=== PATIENT | male | born 1990 | race Caucasian/White ===

== ENCOUNTER 2024-05-28 10:12 | Inpatient (IN) | payer MEDICAID, OTHER, SELFPAY ==
[2024-05-28 10:15] VITALS: BP 122/80; PULSE 97; RESP 20; TEMP 36.7; O2SAT 100; BMI 25.1
--- NOTE | 2024-05-28 10:29 | PC.NURSE ---
couple patient lives with, Anitha can be reached at [phone] if needed. patient had request no information be given to his mother when he was in triage.
[2024-05-28 10:42] LABS: MANUAL DIFF FLAG NO
[2024-05-28 10:44] LABS: Basophils Percent Auto 0.2 % (0-2); Eosinophils Percent Auto 0.2 % (0-4); Hematocrit 47.5 % (42.0-52.0); Hemoglobin 16.3 g/dl (14.0-18.0); Imm Gran Abs Auto 0.06 X10*3/uL (0.00-0.03); Imm Gran Pct Auto 0.5 % (0.0-0.4); Lymphocytes Absolute Auto 1.4 X10*3/uL (1.2-4.9); Lymphocytes Percent Auto 11.3 % (20-40); Mean Corpuscular HGB Conc 34.3 g/dl (31.0-36.0); Mean Corpuscular Hemoglobin 29.7 pg (27.0-33.0); Mean Corpuscular Volume 86.5 fL (80.0-98.0); Mean Platelet Volume 8.6 fL (9.4-12.4); Monocytes Absolute Auto 0.4 X10*3/uL (0.1-1.2); Monocytes Percent Auto 3.1 % (2-11); Neutrophils Absolute Auto 10.3 x10*3/uL (2.0-8.3); Neutrophils Percent Auto 84.7 % (45-73); Platelet Count 339 X10*3/uL (160-400); Red Blood Count 5.49 X10*6/uL (4.60-5.80); Red Cell Distribution Width 11.9 % (11.0-16.0); White Blood Count 12.1 X10*3/uL (4.8-10.8)
[2024-05-28 10:59] LABS: Acetaminophen LAB < 3 mcg/mL (<30); Alanine Aminotransferase 14 U/L (0-40); Albumin Level 4.7 g/dL (3.5-5.0); Alkaline Phosphatase 82 U/L (39-117); Anion Gap 13 (12-20); Aspartate Amino Transferase 22 U/L (5-37); Blood Urea Nitrogen 13 mg/dL (9-16); Calcium 9.9 mg/dL (8.4-10.2); Carbon Dioxide 29 mmol/L (22-29); Chloride 101 mmol/L (96-108); Creatinine Clr Calc Pharmacy 84.7; Estimated Glomerular Filt Rate > 60; Ethanol < 10 mg/dL; Glucose Random 98 mg/dL (60-115); Potassium 3.6 mmol/L (3.3-5.1); Salicylate < 5.0 mg/dL (15-30); Sodium 139 mmol/L (135-145); Total Protein 8.5 g/dL (6.5-8.0)
[2024-05-28] MEDS: hydrOXYzine HCL 50 MG TABLET PO (12:35)
[2024-05-28 12:50] LABS: Amphetamine Screen Urine Not Detected (Not Detect); Barbiturates, Urine Not Detected (Not Detect); Benzodiazepines Screen Urine Not Detected (Not Detect); Buprenorphine Scr Not Detected (Not Detect); Cannabinoid Screen Urine POSITIVE (Not Detect); Cocaine Screen Urine POSITIVE (Not Detect); Fentanyl, urine POSITIVE (Not Detect); Methadone Screen, Urine Not Detected (Not Detect); Opiate Screen Urine Not Detected (Not Detect); Oxycodone Screen Urine Positive (Not Detect); Phencyclidine Screen Urine Not Detected (Not Detect)
--- NOTE | 2024-05-28 14:27 | ECG_ITS ---
Test Reason : ADMISSION Blood Pressure : / mmHG Vent. Rate : 072 BPM Atrial Rate : 072 BPM P-R Int : 128 ms QRS Dur : 084 ms QT Int : 352 ms P-R-T Axes : 043 063 -05 degrees QTc Int : 385 ms Normal sinus rhythm Abnormal QRS-T angle, consider primary T wave abnormality Abnormal ECG No previous ECGs available Referred By: Desirae Irizarry Electronically Signed By:Jayce Thao
--- NOTE | 2024-05-28 15:32 | PC.NURSE ---
Assumed care of patient at 1445, patient appears to be in no apparent distress, sleeping, respirations even and unlabored. Continue plan of care for inpatient bedsearch
[2024-05-28 16:44] LABS: Appearance Urine Clear; Color Urine Dark Yellow; Glucose Urine UA Negative (Negative); Leukocyte Esterase Urine Small (1+) (Negative); Nitrite Urine Negative (Negative); Specific Gravity - Urine >= 1.030 (1.005-1.025); UMIC TRIGGER UA YES; Urine Blood Negative (Negative); Urine Ketones >=160 mg/dL (Negative); Urine Protein 30 (1+) mg/dL (Neg-Trace)
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
[2024-05-28 16:50] LABS: Bacteria Urine 1+ (None Seen); Hyaline Casts Urine 0-2 /LPF (0-2); RBC Urine 0-2 /HPF (0-2)
[2024-05-28 19:30] VITALS: BP 137/91; PULSE 85; RESP 16; TEMP 37.7; O2SAT 100
[2024-05-28 22:00] VITALS: RESP 16
--- NOTE | 2024-05-29 10:59 | PC.NURSE ---
Assumed care of patient at 1045, patient appears to be in no apparent distress at this time. Appears to be sleeping, respiraitons even and unlabored. Continue plan of care for inpatient bedsearch
--- NOTE | 2024-05-29 11:27 | PHA.MEDREC ---
Addendum entered by Kylah Banegas RPh 05/29/24 11:32: Reviewed by [facility] Original Note: Pharmacy Consult ? Medication Reconciliation Pharmacy has reviewed the medication reconciliation done by nursing.
[2024-05-29 13:43] VITALS: BP 124/68; PULSE 87; RESP 16; TEMP 36.9; O2SAT 99
[2024-05-29 14:52] VITALS: BP 147/97; PULSE 89; RESP 20; TEMP 36.5; O2SAT 99
[2024-05-29 14:53] VITALS: BMI 23.3
[2024-05-29] MEDS: hydrOXYzine HCL 25 MG TABLET PO (14:59)
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
[2024-05-29] MEDS: Nicotine Polacrilex 2 MG GUM 4 MG BUCCAL (19:15)
[2024-05-29 20:00] VITALS: BP 127/77; PULSE 83; RESP 14; TEMP 36.4; O2SAT 100
[2024-05-29] MEDS: OLANZapine 5 MG TABLET PO (20:37)
[2024-05-29] MEDS: traZODone HCL 50 MG TABLET PO (20:37)
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
[2024-05-30 08:04] VITALS: BP 123/67; PULSE 72; RESP 18; TEMP 36.3; O2SAT 98
[2024-05-30] MEDS: Nicotine 21 MG PATCH.TD24 TRANSDERMA (08:45)
[2024-05-30] MEDS: Nicotine Polacrilex 2 MG GUM 4 MG BUCCAL ×2 (08:45→15:56)
[2024-05-30] MEDS: OLANZapine 5 MG TABLET PO ×3 (08:45→21:12)
[2024-05-30] MEDS: hydrOXYzine HCL 25 MG TABLET PO ×3 (08:45→23:43)
[2024-05-30 11:01] LABS: Estimated Average Glucose 97 mg/dL; Hemoglobin A1C 137.0283 umol/L; Total Hemoglobin (HGBA1C) 4333.3462 umol/L
[2024-05-30 11:11] LABS: Cholesterol 185 mg/dL (<200); HDL Cholesterol 39 mg/dL (>40); LDL Cholesterol Calculated 117 mg/dL (<100); Magnesium 2.3 mg/dL (1.6-2.6); Triglycerides 149 mg/dL (<150)
[2024-05-30 11:39] LABS: Vitamin B12 353 pg/mL (200-900)
[2024-05-30 11:45] LABS: Free T4 (Free Thyroxine) 1.18 ng/dL (0.71-1.85)
--- NOTE | 2024-05-30 12:15 | MHC.RECOVRN ---
Met with pt in 50- after consult placed to Addiction Medicine for polysubstance use.? Chart review completed. Pt had presented to the ED with increasing paranoia . Pt was admitted to the floor voluntary for? IP LOC for safety, stabilization and treatment.? Upon assessment pt is walking around the unit awake and alert.? He agreed to meet with me in the common area. Pt presented as paranoid and with possible delusions but was still able to meet with me to discuss his substance use history.? Pt reports he has been using substances for a while and at it?s highest use he was using ?an 8 ball of cocaine, 5 bundles of heroin and multiple pressed fentanyl pills? a day.? He uses this via nasal route.? He denies any overdoses.? Due to pt?s paranoid delusions the information I could obtain was minimal.? I was not able to ask about family at this time.? Pt reports his last use was 2 days prior to presenting to ED on 04/27. ? Pt denies any significant alcohol use and states that he only uses it ?socially?.? Pt denies any W/D sx and none observed.? Pt reports he had one period of sobriety for 4 years and was able to accomplish this by obsessively exercising.?? Pt is somewhat interested in initiating MOUD treatment with [facility]locade.? He is currently not receiving any MOUD as he feels stable in a controlled environment.?? T/W provided pt with resources for the [facility] upon D/C.? Also provided him with harm reduction information, community resources and MOUD treatment options.?? Report given to unit staff along with ACS/CCC team for further f/u.? T/W will check in with pt. Tomorrow and is available PRN No further needs verbalized at this time.
--- NOTE | 2024-05-30 12:16 | MHC.RECOVRN ---
AUDIT-C Brief Intervention Pt had positive screen for unhealthy alcohol use on admission, subsequently met with t/w to discuss alcohol use and recovery supports/options. This video game script writer met with patient to discuss current alcohol use and concerns related to increased risk of alcohol related problems.? Pt reports that he only drinks socially and does not over use alcohol. Pt also presenting with paranoid delusions and therefore this assessment was somewhat difficult to complete. Withdrawal History: pt denied Treatment History: not for AUD Supports:?pt denied Risk reduction strategies not reviewed as pt did not admit to overuse. Provided pt with written resources including information on inpatient and outpatient treatment, [facility], harm reduction, and recovery coaching. Also provided pt wtih information on MOUD as this was a concern for pt. (see ACS eval) Pt plans to seek treatment for OUD Pt provided with t/w contact information if questions or concerns arise. Denies other questions or concerns at this time.
[2024-05-30 14:14] LABS: Thyroid Stimulating Hormone 1.27 uIU/mL (0.32-4.0)
[2024-05-30 19:53] VITALS: BP 128/67; PULSE 74; RESP 16; TEMP 36.8; O2SAT 100
[2024-05-30] MEDS: traZODone HCL 50 MG TABLET PO ×2 (21:12→23:43)
[2024-05-31] MEDS: Nicotine 21 MG PATCH.TD24 TRANSDERMA (08:20)
[2024-05-31] MEDS: Nicotine Polacrilex 2 MG GUM 4 MG BUCCAL ×3 (08:20→15:47)
[2024-05-31] MEDS: OLANZapine 5 MG TABLET PO ×2 (08:20→15:35)
[2024-05-31] MEDS: hydrOXYzine HCL 25 MG TABLET PO ×3 (08:20→20:53)
[2024-05-31 08:27] VITALS: BP 143/95; PULSE 73; RESP 18; TEMP 37.7; O2SAT 99
--- NOTE | 2024-05-31 09:06 | HO.PSYCHPN ---
Subjective Subjective Date of Service: 05/31/24 Reason For Visit: paranoia SI Subjective Notes: Conditional Voluntary Healthcare Proxy: No Guardianship: No Medical Problems Affecting Mental Status: No Interim History: Patient was seen and discussed in rounds today. Records and plans were reviewed. He is doing fine with settling in to the unit. He did sleep last night. He continues to have some visual and possibly olfactory hallucinations. Tolerated Zyprexa which I will increase to 10 mg today. Eating and sleeping well. No other changes were made. No SI Review of Systems Review of Systems Yes all other systems are reviewed and are negative Mental Status Exam Mental Status Exam Narrative: In today's visit he is drowsy. Speech is normal. Moderate eye contact. Affect is irritable. No acute signs of psychosis observed but admits to visual and olfactory hallucinations. No overt paranoia today but has had it recently. No SI. Able to move all limbs. No abnormalities of gait. Judgment is intact Diagnostics Vital Signs (24Hr): Vital Signs - 24 hr 05/30/24 19:53 05/31/24 08:27 Temperature 98.2 F 99.8 F Pulse Rate 74 73 Respiratory Rate 16 18 Blood Pressure 128/67 143/95 H Pulse Oximetry 100 99 Oxygen Delivery Method Room Air Room Air BMI result Body Mass Index 23.3 Labs 05/28/24 10:35 05/28/24 10:35 Labs: Laboratory Results - last 48 hr 05/30/24 10:29 Estimat Average Glucose 97 Hemoglobin A1c % 5.0 Magnesium 2.3 Triglycerides 149 Cholesterol 185 LDL Cholesterol, Calc 117 H HDL Cholesterol 39 L Vitamin B12 353 Folate 12.0 TSH 1.27 Free T4 1.18 Medications Medications Current Medications Acetaminophen (Acetaminophen 325 Mg Tablet) 650 mg PO Q6H PRN PRN Reason: Headache/Pain Mild Scale (1-3) Al Hydroxide/Mg Hydroxide (Magnesium Hydrox/Alum Hydrox 30 Ml Oral.Susp) 30 ml PO Q6H PRN PRN Reason: Heartburn/Nausea Hydroxyzine HCl (Hydroxyzine Hcl 25 Mg Tablet) 25 mg PO Q6H PRN PRN Reason: Anxiety Last Admin: 05/31/24 08:20 Dose: 25 mg Magnesium Hydroxide (Milk Of Magnesia 30 Ml Oral.Susp) 30 ml PO DAILY PRN PRN Reason: Constipation Nicotine (Nicotine 21 Mg Patch.Td24) 21 mg TRANSDERMA DAILY PRN PRN Reason: nicotine cravings Last Admin: 05/31/24 08:20 Dose: 21 mg Nicotine Polacrilex (Nicotine Polacrilex 2 Mg Gum) 4 mg BUCCAL Q2H PRN PRN Reason: Nicotine Cravings Last Admin: 05/31/24 08:20 Dose: 4 mg Olanzapine (Olanzapine 5 Mg Tablet) 5 mg PO Q4H PRN PRN Reason: psychosis,agitation Last Admin: 05/31/24 08:20 Dose: 5 mg Olanzapine (Olanzapine 10 Mg Tablet) 10 mg PO BEDTIME ROBIN Trazodone HCl (Trazodone Hcl 50 Mg Tablet) 50 mg PO BEDTIME MRX1 PRN PRN Reason: Insomnia Last Admin: 05/30/24 23:43 Dose: 50 mg Allergies Allergies Allergy/AdvReac Type Severity Reaction Status Date / Time peanut [PEANUT] Allergy Unknown UNKNOWN Unverified 05/28/24 12:35 Assessment & Plan Assessment & Plan (1) Paranoid delusion: Status: Acute Code(s): F22 - Delusional disorders (2) Suicidal ideation: Status: Acute Code(s): R45.851 - Suicidal ideations Plan In conclusion may go meets criteria for IP LOC for safety, stabilization and treatment. He is on a conditional voluntary status. He is open to taking medications. He states that the trazodone was somewhat stimulating last night. He is agreeable to trying an antipsychotic and in light of his poor sleep and not liking the trazodone I will put him on Zyprexa 5 mg q.h.s. and also has hydroxyzine available. Side effects both short and long-term discussed. Risks benefits discussed. He has not been showing any signs of withdrawal but we will keep an eye on that 05/31: Continue current regimen and plans for stabilization and medication management. Increase Zyprexa to 10 mg Reason for continued inpatient stay Substantial Risk for: med/psych decompensation Time Spent With Patient Time: Total time managing care of this patient today ____ minutes.
[2024-05-31 20:00] VITALS: BP 147/87; PULSE 79; TEMP 37.3; O2SAT 98
[2024-05-31] MEDS: OLANZapine 10 MG TABLET PO (20:50)
[2024-05-31] MEDS: traZODone HCL 50 MG TABLET PO ×2 (20:50→22:47)
[2024-06-01 08:00] VITALS: BP 137/78; PULSE 80; RESP 18; TEMP 36.4; O2SAT 98
[2024-06-01] MEDS: Nicotine 21 MG PATCH.TD24 TRANSDERMA (08:38)
[2024-06-01] MEDS: hydrOXYzine HCL 25 MG TABLET PO (08:56)
[2024-06-01] MEDS: OLANZapine 5 MG TABLET PO (08:57)
[2024-06-01] MEDS: Nicotine Polacrilex 2 MG GUM 4 MG BUCCAL (08:57)
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
[2024-06-01 10:25] VITALS: BP 139/81
[2024-06-01] MEDS: cloNIDine HCL 0.1 MG TABLET PO (10:25)
[2024-06-01] MEDS: methADONE HCl 20 MG/2 ML ORAL.CONC 10 MG PO (10:37)
--- NOTE | 2024-06-01 10:42 | MHC.RECOVRN ---
Met with pt to follow up as pt reported opioid withdrawal symptoms to RN. Pt laying in bed, eyes closed for duration of conversation. Pt reports using 20-25 pressed fentanyl pills plus 5 bundles heroin/fentanyl, [place], off and on for 2 years, since I got out of [facility]. Pt does not appear restless, no piloerection, denies body aches, slightly diaphoretic, rhinorrhea noted, reports upset stomach. Discussed MOUD. Pt declines Suboxone, would like to utilize methadone while here to address withdrawal symptoms. Does not wish to be connected to an OTP. Pt reports hx methadone last year, did not receive doses higher than 45 mg. Denies hx prescribed Suboxone but has tried it and experienced precipitated withdrawal. Denies other questions or concerns for t/w. Discussed with Justine Cho APRN.
--- NOTE | 2024-06-01 17:07 | P.PNADD_ITS ---
Subjective Subjective Date of Service: 06/01/24 Reason For Visit: paranoia SI Interim History: Patient admitted to unit seen in follow up Seen by bridges supervisor over the weekend and again this morning--opioid use disorder After meeting with RN this morning he reported wanting to initiate methadone and was noted to be in mild- moderate withdrawal, so methadone 10mg was ordered and administered Patient then met with attending psychiatric provider and stated that he changed his mind and wishes to start buprenorphine Patient seen in room 507. He was laying in bed, eyes closed, resting comfortably. Observed by t/w for a moment prior to waking and restlessness not noted. He wakes to name, but does not open his eyes. no diaphoresis, rhinorrhea, yawning noted He does acknowledge that he wants to transition to buprenorphine, but asking to be allowed to sleep now. Denies any withdrawal sx. Stating again that he is very tired and would like to sleep. requesting to start buprenoprhine in the morning Review of Systems Constitutional: Reports as per HPI Mental Status Exam Mental Status Exam Level of Consciousness: Drowsy (eyes closed , resting ) Diagnostics Vital Signs (24Hr): Vital Signs - 24 hr 05/31/24 20:00 06/01/24 08:00 06/01/24 10:25 Temperature 99.1 F 97.5 F Pulse Rate 79 80 Respiratory Rate 18 Blood Pressure 147/87 H 137/78 139/81 Pulse Oximetry 98 98 Oxygen Delivery Method Room Air Room Air BMI result Body Mass Index 23.3 Labs 05/28/24 10:35 05/28/24 10:35 Medications Medications Current Medications Acetaminophen (Acetaminophen 325 Mg Tablet) 650 mg PO Q6H PRN PRN Reason: Headache/Pain Mild Scale (1-3) Al Hydroxide/Mg Hydroxide (Magnesium Hydrox/Alum Hydrox 30 Ml Oral.Susp) 30 ml PO Q6H PRN PRN Reason: Heartburn/Nausea Clonidine HCl (Clonidine Hcl 0.1 Mg Tablet) 0.1 mg PO Q4H PRN; Protocol PRN Reason: anxiety/opiate w/drawal Hydroxyzine HCl (Hydroxyzine Hcl 25 Mg Tablet) 25 mg PO Q6H PRN PRN Reason: Anxiety Last Admin: 06/01/24 08:56 Dose: 25 mg Magnesium Hydroxide (Milk Of Magnesia 30 Ml Oral.Susp) 30 ml PO DAILY PRN PRN Reason: Constipation Nicotine (Nicotine 21 Mg Patch.Td24) 21 mg TRANSDERMA DAILY PRN PRN Reason: nicotine cravings Last Admin: 06/01/24 08:38 Dose: 21 mg Nicotine Polacrilex (Nicotine Polacrilex 2 Mg Gum) 4 mg BUCCAL Q2H PRN PRN Reason: Nicotine Cravings Last Admin: 06/01/24 08:57 Dose: 4 mg Nicotine Polacrilex (Nicotine Polacrilex Lozenge 4 Mg Lozenge) 4 mg BUCCAL Q2H PRN PRN Reason: Nicotine Cravings Olanzapine (Olanzapine 5 Mg Tablet) 5 mg PO Q4H PRN PRN Reason: psychosis,agitation Last Admin: 06/01/24 08:57 Dose: 5 mg Olanzapine (Olanzapine 10 Mg Tablet) 10 mg PO BEDTIME ROBIN Last Admin: 05/31/24 20:50 Dose: 10 mg Olanzapine (Olanzapine 2.5 Mg Tablet) 2.5 mg PO QID PRN PRN Reason: agitation Trazodone HCl (Trazodone Hcl 50 Mg Tablet) 50 mg PO BEDTIME MRX1 PRN PRN Reason: Insomnia Last Admin: 05/31/24 22:47 Dose: 50 mg Allergies Allergies Allergy/AdvReac Type Severity Reaction Status Date / Time peanut [PEANUT] Allergy Unknown UNKNOWN Unverified 05/28/24 12:35 Assessment & Plan Assessment & Plan (1) Opioid use disorder: Status: Acute Code(s): F11.90 - Opioid use, unspecified, uncomplicated Assessment and Plan: * COWS q 4H while awake * offer PRN comfort medications if needed to address any withdrawal sx that may present --- * will follow up in AM with plan to start buprenorphine -- Total time managing care of this patient today _15__ minutes.
[2024-06-01 20:00] VITALS: BP 122/65; PULSE 80; RESP 16; TEMP 36.7; O2SAT 97
[2024-06-01] MEDS: OLANZapine 10 MG TABLET PO (22:01)
[2024-06-01] MEDS: traZODone HCL 50 MG TABLET PO (22:01)
[2024-06-02 07:52] VITALS: BP 158/103; PULSE 101; RESP 20; TEMP 36.4; O2SAT 99
[2024-06-02] MEDS: Nicotine 21 MG PATCH.TD24 TRANSDERMA (08:21)
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
[2024-06-02 09:54] VITALS: BP 139/87
[2024-06-02] MEDS: cloNIDine HCL 0.1 MG TABLET PO ×2 (09:54→22:22)
[2024-06-02] MEDS: hydrOXYzine HCL 25 MG TABLET PO (09:57)
[2024-06-02] MEDS: Nicotine Polacrilex 2 MG GUM 4 MG BUCCAL (09:57)
--- NOTE | 2024-06-02 09:57 | P.PNADD_ITS ---
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 unlikely that this is accurate Review of Systems Constitutional: Reports as per HPI Mental Status Exam Mental Status Exam Level of Consciousness: Awake Patient Behavior: Appropriate Mood Description: Blunted Affect Description: Blunted Diagnostics Vital Signs (24Hr): Vital Signs - 24 hr 06/01/24 10:25 06/01/24 20:00 06/02/24 07:52 Temperature 98.1 F 97.5 F Pulse Rate 80 101 H Respiratory Rate 16 20 Blood Pressure 139/81 122/65 158/103 H Pulse Oximetry 97 99 Oxygen Delivery Method Room Air Room Air BMI result Body Mass Index 23.3 Labs 05/28/24 10:35 05/28/24 10:35 Medications Medications Current Medications Acetaminophen (Acetaminophen 325 Mg Tablet) 650 mg PO Q6H PRN PRN Reason: Headache/Pain Mild Scale (1-3) Al Hydroxide/Mg Hydroxide (Magnesium Hydrox/Alum Hydrox 30 Ml Oral.Susp) 30 ml PO Q6H PRN PRN Reason: Heartburn/Nausea Clonidine HCl (Clonidine Hcl 0.1 Mg Tablet) 0.1 mg PO Q4H PRN; Protocol PRN Reason: anxiety/opiate w/drawal Hydroxyzine HCl (Hydroxyzine Hcl 25 Mg Tablet) 25 mg PO Q6H PRN PRN Reason: Anxiety Last Admin: 06/01/24 08:56 Dose: 25 mg Magnesium Hydroxide (Milk Of Magnesia 30 Ml Oral.Susp) 30 ml PO DAILY PRN PRN Reason: Constipation Nicotine (Nicotine 21 Mg Patch.Td24) 21 mg TRANSDERMA DAILY PRN PRN Reason: nicotine cravings Last Admin: 06/02/24 08:21 Dose: 21 mg Nicotine Polacrilex (Nicotine Polacrilex 2 Mg Gum) 4 mg BUCCAL Q2H PRN PRN Reason: Nicotine Cravings Last Admin: 06/01/24 08:57 Dose: 4 mg Nicotine Polacrilex (Nicotine Polacrilex Lozenge 4 Mg Lozenge) 4 mg BUCCAL Q2H PRN PRN Reason: Nicotine Cravings Olanzapine (Olanzapine 5 Mg Tablet) 5 mg PO Q4H PRN PRN Reason: psychosis,agitation Last Admin: 06/01/24 08:57 Dose: 5 mg Olanzapine (Olanzapine 10 Mg Tablet) 10 mg PO BEDTIME ROBIN Last Admin: 06/01/24 22:01 Dose: 10 mg Olanzapine (Olanzapine 2.5 Mg Tablet) 2.5 mg PO QID PRN PRN Reason: agitation Trazodone HCl (Trazodone Hcl 50 Mg Tablet) 50 mg PO BEDTIME MRX1 PRN PRN Reason: Insomnia Last Admin: 06/01/24 22:01 Dose: 50 mg Allergies Allergies Allergy/AdvReac Type Severity Reaction Status Date / Time peanut [PEANUT] Allergy Unknown UNKNOWN Unverified 05/28/24 12:35 Assessment & Plan Assessment & Plan (1) Opioid use disorder: Status: Acute Code(s): F11.90 - Opioid use, unspecified, uncomplicated Assessment and Plan: * PRN medications for withdrawal sx * Suboxone 4mg at noon * will reassess and adjust orders as necessary Plan I Total time managing care of this patient today ___20_ minutes.
[2024-06-02 10:00] VITALS: BP 139/80; PULSE 99; RESP 20; O2SAT 98
[2024-06-02] MEDS: Buprenorphine/Naloxone 4/1 mg FILM 1 FILM SUBLINGUAL (11:38)
--- NOTE | 2024-06-02 15:00 | MHC.RECOVRN ---
Met with pt to follow up after receiving Suboxone. Pt awake, alert, easily engages in conversation. Reports feeling better, everything that I felt earlier is gone. Denies withdrawal, feels the dose is adequate. Denies questions or concerns for t/w. Discussed with Justine Cho APRN.
[2024-06-02 20:00] VITALS: BP 120/66; PULSE 88; TEMP 36.3; O2SAT 100
[2024-06-02] MEDS: traZODone HCL 50 MG TABLET PO (22:08)
[2024-06-02] MEDS: OLANZapine 10 MG TABLET PO (22:08)
[2024-06-02 22:20] VITALS: BP 124/66; PULSE 80; TEMP 36.8; O2SAT 99
[2024-06-02 22:22] VITALS: BP 124/66
[2024-06-02] MEDS: Acetaminophen 325 MG TABLET 650 MG PO (22:23)
[2024-06-03 02:20] VITALS: PULSE 68
[2024-06-03 05:00] VITALS: BP 96/54; PULSE 70; TEMP 36.4
[2024-06-03 08:24] VITALS: BP 103/56; PULSE 70; RESP 16; TEMP 36.3; O2SAT 98
[2024-06-03] MEDS: Buprenorphine/Naloxone 4/1 mg FILM 1 FILM SUBLINGUAL ×2 (08:50→17:28)
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
[2024-06-03] MEDS: Nicotine Polacrilex 2 MG GUM 4 MG BUCCAL (09:09)
[2024-06-03] MEDS: Nicotine 21 MG PATCH.TD24 TRANSDERMA (09:09)
--- NOTE | 2024-06-03 13:06 | MHC.RECOVRN ---
Met with pt to follow up and provide support. Pt awake, alert, easily engages in conversation. Reports last night he slept about 3 hours, which he says is normal for him. Pt reports around 8PM he began feeling withdrawal symptoms including upset stomach and diaphoresis. Pt would like a nighttime dose of Suboxone. Reports during the day he feels great. Denies other questions or concerns for t/w. Discussed with Justine Cho APRN.
[2024-06-03] MEDS: Nicotine Polacrilex Lozenge 4 MG LOZENGE BUCCAL ×2 (14:21→19:07)
[2024-06-03 19:49] VITALS: BP 152/78; PULSE 86; RESP 16; TEMP 36.8; O2SAT 99
[2024-06-03] MEDS: traZODone HCL 50 MG TABLET PO (20:50)
[2024-06-03] MEDS: OLANZapine 7.5 MG TABLET 15 MG PO (20:50)
[2024-06-03] MEDS: cloNIDine HCL 0.1 MG TABLET PO (20:53)
[2024-06-04 07:00] VITALS: BMI 25.6
[2024-06-04 08:00] VITALS: BP 107/55; PULSE 83; RESP 16; TEMP 36.6; O2SAT 98
[2024-06-04] MEDS: Buprenorphine/Naloxone 4/1 mg FILM 1 FILM SUBLINGUAL ×2 (08:37→16:33)
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
--- NOTE | 2024-06-04 11:32 | P.PNADD_ITS ---
Subjective Subjective Date of Service: 06/04/24 Reason For Visit: paranoia SI Interim History: Patient seen in follow up on M5 Awake, alert, pleasant and engaged in interview Suboxone dose increased to 4mg BID yesterday (06/03) He reports feeling good Sleep improved, but he does note occasional muscle cramping and soreness--relieved with tylenol Appetite improved-no more stomach cramping Discussed current dose and he states he does not wish to increase any further T/w provided education around ongoing dosing once discharged, and offered Sublocade (injection) as an option. Lee declined stating he hopes to do this for a month and see how it goes . Review of Systems Constitutional: Reports as per HPI Mental Status Exam Mental Status Exam Patient Appearance: Appropriate Level of Consciousness: Awake, Appropriate and Alert Patient Behavior: Appropriate and Cooperative Mood Description: Calm Affect Description: Calm Speech Pattern: Clear Diagnostics Vital Signs (24Hr): Vital Signs - 24 hr 06/03/24 19:49 06/04/24 08:00 Temperature 98.2 F 98 F Pulse Rate 86 83 Respiratory Rate 16 16 Blood Pressure 152/78 H 107/55 L Pulse Oximetry 99 98 Oxygen Delivery Method Room Air Room Air BMI result Body Mass Index 25.6 Labs 05/28/24 10:35 05/28/24 10:35 Medications Medications Current Medications Acetaminophen (Acetaminophen 325 Mg Tablet) 650 mg PO Q6H PRN PRN Reason: Headache/Pain Mild Scale (1-3) Last Admin: 06/02/24 22:23 Dose: 650 mg Al Hydroxide/Mg Hydroxide (Magnesium Hydrox/Alum Hydrox 30 Ml Oral.Susp) 30 ml PO Q6H PRN PRN Reason: Heartburn/Nausea Buprenorphine/Naloxone (Buprenorphine/Naloxone 4/1 Mg Film) 1 film SUBLINGUAL BID@0900,1700 ROBIN Last Admin: 06/04/24 08:37 Dose: 1 film Clonidine HCl (Clonidine Hcl 0.1 Mg Tablet) 0.1 mg PO Q4H PRN; Protocol PRN Reason: anxiety/opiate w/drawal Last Admin: 06/03/24 20:53 Dose: 0.1 mg Hydroxyzine HCl (Hydroxyzine Hcl 25 Mg Tablet) 25 mg PO Q6H PRN PRN Reason: Anxiety Last Admin: 06/02/24 09:57 Dose: 25 mg Magnesium Hydroxide (Milk Of Magnesia 30 Ml Oral.Susp) 30 ml PO DAILY PRN PRN Reason: Constipation Nicotine (Nicotine 21 Mg Patch.Td24) 21 mg TRANSDERMA DAILY PRN PRN Reason: nicotine cravings Last Admin: 06/03/24 09:09 Dose: 21 mg Nicotine Polacrilex (Nicotine Polacrilex Lozenge 4 Mg Lozenge) 4 mg BUCCAL Q2H PRN PRN Reason: Nicotine Cravings Last Admin: 06/03/24 19:07 Dose: 4 mg Olanzapine (Olanzapine 5 Mg Tablet) 5 mg PO Q4H PRN PRN Reason: psychosis,agitation Last Admin: 06/01/24 08:57 Dose: 5 mg Olanzapine (Olanzapine 7.5 Mg Tablet) 15 mg PO BEDTIME ROBIN Last Admin: 06/03/24 20:50 Dose: 15 mg Trazodone HCl (Trazodone Hcl 50 Mg Tablet) 50 mg PO BEDTIME MRX1 PRN PRN Reason: Insomnia Last Admin: 06/03/24 20:50 Dose: 50 mg Allergies Allergies Allergy/AdvReac Type Severity Reaction Status Date / Time peanut [PEANUT] Allergy Unknown UNKNOWN Unverified 05/28/24 12:35 Assessment & Plan Assessment & Plan (1) Opioid use disorder: Status: Acute Code(s): F11.90 - Opioid use, unspecified, uncomplicated Assessment and Plan: * continue suboxone 4mg BID * will need to be connected to community provider prior to discharge * no additional follow up at this time, reconsult if needed Total time managing care of this patient today ____ minutes.
[2024-06-04] MEDS: Nicotine Polacrilex Lozenge 4 MG LOZENGE BUCCAL (15:43)
[2024-06-04 20:00] VITALS: BP 127/75; PULSE 97; TEMP 36.3; O2SAT 98
[2024-06-04] MEDS: Acetaminophen 325 MG TABLET 650 MG PO (21:36)
[2024-06-04] MEDS: OLANZapine 7.5 MG TABLET 15 MG PO (21:37)
[2024-06-04] MEDS: traZODone HCL 50 MG TABLET PO (21:37)
[2024-06-05 08:00] VITALS: BP 117/68; PULSE 79; RESP 18; TEMP 36.9; O2SAT 98
[2024-06-05] MEDS: Buprenorphine/Naloxone 4/1 mg FILM 1 FILM SUBLINGUAL ×2 (08:41→16:33)
[2024-06-05] MEDS: Nicotine Polacrilex Lozenge 4 MG LOZENGE BUCCAL ×2 (12:36→19:26)
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
[2024-06-05 20:00] VITALS: BP 148/84; PULSE 92; RESP 15; TEMP 37.2; O2SAT 99
[2024-06-05] MEDS: traZODone HCL 50 MG TABLET PO (20:31)
[2024-06-05] MEDS: OLANZapine 7.5 MG TABLET 15 MG PO (20:31)
[2024-06-06] MEDS: Buprenorphine/Naloxone 4/1 mg FILM 1 FILM SUBLINGUAL (09:13)
[2024-06-06] MEDS: Naloxone HCl Nasal TAKE HOME 4 MG SPRAY 8 MG NOSTRILALT (09:14)
== END 2024-06-06 11:00 | disposition home or self-care (01) | DRG 751 ==
LOC: HO.ED 05-29 13:02 → HO.PM5 05-29 13:58
PROVIDERS: Physician Assistant Medical; Admitting Provider Clinical Nurse Specialist Psychiatric/Mental Health, Adult; Emergency Provider Student in an Organized Health Care Education/Training Program; Visit Provider Psychiatry & Neurology Psychiatry
DX: F29 Unspecified psychosis not due to a substance or known physiological condition (principal); R45.851 Suicidal ideations; F11.20 Opioid dependence, uncomplicated; F17.210 Nicotine dependence, cigarettes, uncomplicated; F43.10 Post-traumatic stress disorder, unspecified; Z71.6 Tobacco abuse counseling; Z87.820 Personal history of traumatic brain injury; Z79.899 Other long term (current) drug therapy
CPT/HCPCS: 36415; 80053; 80061; 80143; 80179; 80307; 81001; 82607; 82746; 83036; 83735; 84439; 84443; 85025; 93005; 99285; S9485

== ENCOUNTER → 2024-05-28 14:27 | Outpatient (BNV) | payer MEDICAID, SELFPAY | PROVIDERS: Emergency Provider Student in an Organized Health Care Education/Training Program; Visit Provider Internal Medicine Cardiovascular Disease | DX: R94.31 Abnormal electrocardiogram [ECG] [EKG] (principal) | CPT/HCPCS: 93010 ==

== ENCOUNTER → 2024-05-29 13:54 | Outpatient (BNV) | payer MEDICAID, SELFPAY | PROVIDERS: Admitting Provider Clinical Nurse Specialist Psychiatric/Mental Health, Adult; Emergency Provider Student in an Organized Health Care Education/Training Program; Visit Provider Nurse Practitioner Psychiatric/Mental Health | DX: F11.90 Opioid use, unspecified, uncomplicated (principal) | CPT/HCPCS: 99231; 99232 ==

== ENCOUNTER → 2024-05-29 13:54 | Outpatient (BNV) | payer OTHER, SELFPAY | PROVIDERS: Admitting Provider Clinical Nurse Specialist Psychiatric/Mental Health, Adult; Emergency Provider Student in an Organized Health Care Education/Training Program; Visit Provider Psychiatry & Neurology Psychiatry | DX: F29 Unspecified psychosis not due to a substance or known physiological condition (principal); R45.851 Suicidal ideations; F43.11 Post-traumatic stress disorder, acute; F11.90 Opioid use, unspecified, uncomplicated; S06.9XAS Unspecified intracranial injury with loss of consciousness status unknown, sequela | CPT/HCPCS: 99231; 99232 ==

== ENCOUNTER 2024-06-17 09:50 | Outpatient (AMB) | payer OTHER, SELFPAY ==
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
== END 2024-06-17 10:37 | disposition home or self-care (01) ==
PROVIDERS: Visit Provider Nurse Practitioner Psychiatric/Mental Health
DX: F11.90 Opioid use, unspecified, uncomplicated (principal)
CPT/HCPCS: 99214

== ENCOUNTER → 2024-06-17 09:50 | Outpatient (BNVA) | payer OTHER, SELFPAY | PROVIDERS: Visit Provider Nurse Practitioner Psychiatric/Mental Health | DX: F11.20 Opioid dependence, uncomplicated (principal) | CPT/HCPCS: 99212 ==

== ENCOUNTER 2024-06-29 14:15 | Outpatient (AMB) | payer OTHER, SELFPAY ==
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
== END 2024-06-29 15:58 | disposition home or self-care (01) ==
PROVIDERS: Visit Provider Nurse Practitioner Psychiatric/Mental Health
DX: F11.90 Opioid use, unspecified, uncomplicated (principal)
CPT/HCPCS: 99213

== ENCOUNTER → 2024-06-29 14:15 | Outpatient (BNVA) | payer OTHER, SELFPAY | PROVIDERS: Visit Provider Nurse Practitioner Psychiatric/Mental Health | DX: F11.90 Opioid use, unspecified, uncomplicated (principal); Z51.81 Encounter for therapeutic drug level monitoring | CPT/HCPCS: 99212 ==

== ENCOUNTER 2024-07-09 13:11 | Outpatient (AMB) | payer OTHER, SELFPAY ==
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
== END 2024-07-09 14:24 | disposition home or self-care (01) ==
PROVIDERS: Visit Provider Nurse Practitioner Psychiatric/Mental Health
DX: F11.90 Opioid use, unspecified, uncomplicated (principal)
CPT/HCPCS: 99214

== ENCOUNTER → 2024-07-09 13:11 | Outpatient (BNVA) | payer OTHER, SELFPAY | PROVIDERS: Visit Provider Nurse Practitioner Psychiatric/Mental Health | DX: F11.20 Opioid dependence, uncomplicated (principal); Z51.81 Encounter for therapeutic drug level monitoring | CPT/HCPCS: 99212 ==

== ENCOUNTER 2024-07-22 12:50 | Outpatient (AMB) | payer OTHER, SELFPAY ==
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
== END 2024-07-22 14:30 | disposition home or self-care (01) ==
PROVIDERS: Visit Provider Nurse Practitioner Psychiatric/Mental Health
DX: F11.90 Opioid use, unspecified, uncomplicated (principal)
CPT/HCPCS: 99213

== ENCOUNTER → 2024-07-22 12:50 | Outpatient (BNVA) | payer OTHER, SELFPAY | PROVIDERS: Visit Provider Nurse Practitioner Psychiatric/Mental Health | DX: F11.20 Opioid dependence, uncomplicated (principal) | CPT/HCPCS: 99212 ==

== ENCOUNTER 2024-08-30 08:44 | Emergency (ER) | payer MEDICAID, SELFPAY ==
--- NOTE | ~2024-08-30 | XR_ITS ---
CLINICAL HISTORY: pain 2 view chest x-ray. Comparison: None Findings: Normal lung volumes. Lungs are clear. No pneumothorax or pleural effusion. Heart size normal. No passive venous congestion. No midline shift or tracheal deviation. No acute fracture. Impression: 1. No acute cardiopulmonary disease. This document has been electronically signed by: Yobani Freeman MD on 08/30/2024 09:25:45
[2024-08-30 08:51] VITALS: BP 121/78; PULSE 95; RESP 18; TEMP 36.7; O2SAT 98; BMI 27.6
--- NOTE | 2024-08-30 08:59 | ECG_ITS ---
Test Reason : chest pain Blood Pressure : */* mmHG Vent. Rate : 90 BPM Atrial Rate : 90 BPM P-R Int : 122 ms QRS Dur : 86 ms QT Int : 334 ms P-R-T Axes : 29 17 60 degrees QTcB Int : 408 ms Normal sinus rhythm Nonspecific T wave abnormality Abnormal ECG When compared with ECG of 28-May-2024 14:56, Nonspecific T wave abnormality no longer evident in Inferior leads Referred By: Mel Forbes Electronically Signed By: OLIVER CONDE MD
--- NOTE | 2024-08-30 09:00 | ED_ITS ---
HPI - Psych General Chief Complaint: Psychiatric Symptoms Stated Complaint: SI,insomnia Time Seen by Provider: 08/30/24 08:59 Source: patient and old records reviewed Mode of arrival: ambulatory Limitations: no limitations History of Present Illness ED Provider: JORJE THOMPSON Narrative: 34 yo male with PMH of TBI, PTSD, opiate use disorder was on 8/2 TID but took himself off 7 days ago and went into withdrawal. He has used cocaine but not in the last 48 hours. He has had shoulder and upper chest pain for 5 days but no recent trauma, URI, it is not painful to breathe. He denies IVDA. He has no fevers. He reports he just feels down and he didn't like the way the suboxone made him feel so he stopped it. He has never tried to kill himself in the past but he is feeling really down. MD complaint: suicidal ideation and feels depressed Onset (ago): day(s) (5+) Duration: getting worse History of same: Yes Relieving factors: none Exacerbating factors: medication Context: significant life stressor Associated psychiatric symptoms: depression and suicidal ideation Associated symptoms: other (chest and shoulder tightness) Treatments prior to arrival: none If self harm: admits thoughts of self harm Related Data Previous Rx's ?Medication ?Instructions ?Recorded clonidine HCl 0.1 mg tablet 0.1 mg PO Q4H PRN anxiety/opiate 06/05/24 w/drawal 30 days #60 tabs hydroxyzine HCl 25 mg tablet 25 mg PO Q6H PRN Anxiety 30 days 06/05/24 #60 tabs nicotine (polacrilex) 4 mg buccal 4 mg buccal Q2H PRN Nicotine 06/05/24 lozenge Cravings 30 days #108 ea nicotine 21 mg/24 hr daily 21 mg transdermal DAILY PRN 06/05/24 transdermal patch nicotine cravings 28 days #28 ea olanzapine 15 mg tablet 15 mg PO BEDTIME 30 days #30 tabs 06/05/24 trazodone 50 mg tablet 50 mg PO BEDTIME PRN Insomnia 30 06/05/24 days #30 tabs buprenorphine 4 mg-naloxone 1 mg 1 film buccal TID #42 ea 07/09/24 sublingual film (Suboxone) buprenorphine 4 mg-naloxone 1 mg 1 film buccal Q24H #7 ea 08/30/24 sublingual film (Suboxone) hydroxyzine HCl 25 mg tablet 25 mg PO TID PRN anxiety #20 tabs 08/30/24 Allergies Allergy/AdvReac Type Severity Reaction Status Date / Time peanut [PEANUT] Allergy Unknown UNKNOWN Verified 08/30/24 08:55 Review of Systems 2 Review of Systems: Constitutional : No Fever, No Chills ENT/Mouth : No Ear Pain, No Nasal Congestion, No sore throat Eyes: No Eye Pain, No Swelling, No Redness Cardiovascular : pos Chest Pain, No SOB Respiratory : No Cough, No Sputum, No Dyspnea Gastrointestinal : No Nausea, No Vomiting, No Diarrhea, No Hematochezia, No Melena Genitourinary : No Dysuria, No Urinary Frequency, No Hematuria Musculoskeletal : No Myalgias Skin : No Skin Lesions, No rash Neuro : No Weakness, No Numbness, No Paresthesias, No Dizziness, No Headache Psych : positive Anxiety, positive Depression, positive SI no HI All other systems reviewed and are negative PMFSH Past Medical History Attestation statement: The following information was validated with the patient. Source: old records reviewed Medical History Cocaine use disorder Psychotic disorder TBI (traumatic brain injury) PTSD (post-traumatic stress disorder) Social History Social History Household Members: Friend(s) Housing: House Do you presently have visiting nurse or other home services: No Unable to assess alcohol history related to: Unknown Patient Tobacco Use Status: Current everyday Tobacco user Tobacco use type: Cigarette Cigarette Packs Per Day: 1 Cigarettes Per Day: 20.0 e-Cigarette/Vaping Use: Former Use Second Hand Smoke Exposure: Yes Substance Use Type: Crack/Cocaine and Marijuana Advance Directives: No Advance Directives Information Provided: No service: No Sexual orientation: Unable to collect Physical Exam 2 Vital Signs: Vital Signs: Last Vital Signs Temp 98.0 F 08/30/24 08:51 Pulse 95 08/30/24 08:51 Resp 18 08/30/24 08:51 BP 121/78 08/30/24 08:51 Pulse Ox 98 08/30/24 08:51 O2 Del Method Room Air 08/30/24 08:51 BMI result Body Mass Index 27.6 Appearance: Alert. Oriented X3. No acute distress. Eyes: Pupils equal, round and reactive to light. ENT: Pharynx normal. Neck: Normal inspection. Neck supple. CVS: Normal heart rate and rhythm. Pulses normal. Respiratory: No respiratory distress. Breath sounds normal. Abdomen: Soft and non-tender. Skin: Skin warm and dry. Normal skin color. Normal skin turgor. Extremities: No lower extremity edema. No calf ttp Neuro: Oriented X 3. No motor deficit. No sensory deficit. CN2-12 intact Medical Decision Making Medical Decision Making [facility] Narrative: 34 yo male with PMH of TBI, PTSD, opiate use disorder was on 8/2 TID here with c/o depression and SI took himself off suboxone 7 days ago. He also c/o vague chest and shoulder tightness but he has no recent URI, normal lung and heart sounds, he has symmetric distal pulses and not HTNive doubt dissection, he also is PERC negative doubt VTE. Will obtain basic labs, EKG, CXR, trop x 1, refer to CARE team. Differential Diagnosis Differential Diagnoses: The differential diagnosis associated with the presentation includes PTSD, depression, anxiety Admission/Observation Consideration of admission/observation: Escalation of care including admission/observation considered physician observation started at 947am observation ended at 1147am Justine Cho aware reccs 1 week of suboxone / daily will follow up start at home when he feels more in withdrawal Consult Healthcare Provider Management of the patient was discussed with: Behavioral Health Provider Lab Data [facility] Lab Attestation statement: I reviewed the patient's lab results. 08/30/24 09:13 08/30/24 09:13 Labs: Lab Results 08/30/24 Range/Units 09:13 WBC 12.0 H (4.8-10.8) X10*3/uL RBC 4.91 (4.60-5.80) X10*6/uL Hgb 14.6 (14.0-18.0) g/dl Hct 42.5 (42.0-52.0) % MCV 86.6 (80.0-98.0) fL MCH 29.7 (27.0-33.0) pg MCHC 34.4 (31.0-36.0) g/dl RDW 12.6 (11.0-16.0) % Plt Count 378 (160-400) X10*3/uL MPV 8.2 L (9.4-12.4) fL Immature Gran % (Auto) 0.3 (0.0-0.4) % Neut % (Auto) 67.2 (45-73) % Lymph % (Auto) 21.7 (20-40) % [place] % (Auto) 4.1 (2-11) % Eos % (Auto) 6.3 H (0-4) % Baso % (Auto) 0.4 (0-2) % Lymph # (Auto) 2.6 (1.2-4.9) X10*3/uL [place] # (Auto) 0.5 (0.1-1.2) X10*3/uL Eos # (Auto) 0.8 H (0.0-0.4) X10*3/uL Baso # (Auto) 0.1 (0.0-0.2) X10*3/uL Abs Immat Gran (auto) 0.03 (0.00-0.03) X10*3/uL Absolute Neuts (auto) 8.0 (2.0-8.3) x10*3/uL Absolute Nucleated RBC 0.000 (0.0-0.012) X10*3/uL Nucleated RBC % (auto) 0.0 (0.0-0.2) /100WBC Sodium 142 (135-145) mmol/L Potassium 3.6 (3.3-5.1) mmol/L Chloride 111 H (96-108) mmol/L Carbon Dioxide 22 (22-29) mmol/L Anion Gap 13 (12-20) BUN 13 (9-16) mg/dL Creatinine 0.87 (0.5-1.4) mg/dL Estim Creat Clear Calc 122.3 Estimated GFR > 60 Random Glucose 116 H (60-115) mg/dL Calcium 9.1 D (8.4-10.2) mg/dL Magnesium 2.1 (1.6-2.6) mg/dL Total Bilirubin 0.4 (0.0-1.0) mg/dL Direct Bilirubin 0.1 (0.0-0.5) mg/dL AST 13 (5-37) U/L ALT < 6 (0-40) U/L Alkaline Phosphatase 81 (39-117) U/L Troponin I High Sens < 2.7 (<3.5-35.0) ng/L Total Protein 7.7 (6.5-8.0) g/dL Albumin 4.1 (3.5-5.0) g/dL Urine Opiates Screen Not Detected (Not Detect) Ur Buprenorphine Scrn Not Detected (Not Detect) ng/mL Ur Oxycodone Screen Not Detected (Not Detect) ng/mL Urine Methadone Screen Not Detected (Not Detect) ng/mL Urine Fentanyl Screen POSITIVE H (Not Detect) Ur Barbiturates Screen Not Detected (Not Detect) Ur Phencyclidine Scrn Not Detected (Not Detect) Ur Amphetamines Screen Not Detected (Not Detect) U Benzodiazepines Scrn Not Detected (Not Detect) Urine Cocaine Screen POSITIVE H (Not Detect) U Marijuana (THC) Screen POSITIVE H (Not Detect) Ethyl Alcohol < 10 mg/dL Influenza Type A (PCR) NEGATIVE (Negative) Influenza Type B (PCR) NEGATIVE (Negative) RSV RNA Qual (PCR) NEGATIVE (Negative) SARS-CoV-2 RNA (RT-PCR) NEGATIVE (Negative) Independent Interpretation I performed an independent interpretation of an: EKG and Plain X-Ray (normal ) Interpretation: Rate: 90 Rhythm: NSR [place]: normal Normal P waves. Normal BRETT. Normal QRS complex. ST T wave : normal no COBY qTC: 408 prior studies: no acute ischemia The study has been interpreted contemporaneously by me. . Radiology Impression Discussion of test interpretation with radiology: I have reviewed the radiologist's reading. External Record Review External record reviewed: Inpatient record and Outpatient record Discharge Plan Discharge Clinical Impression: Cocaine use disorder, Opioid use disorder Patient Disposition: Home, Self-Care Instructions: Cocaine Abuse (ED), Opioid Use Disorder (ED) Additional Instructions: your work up for chest pain was normal chest xray labs, viral panel for flu, covid, rsv negative EKG reassuring please follow up with your suboxone provider start dose of suboxone 4/1 later today when you are feeling more in withdrawal Opiate use disorder You were seen in our Emergency Department today for treatment of opiate use disorder. You may have been dosed with medication for opiate use disorder (MOUD) in the form of suboxone or methadone. You may experience feeling some withdrawal symptoms and this is normal. The? dose in the Emergency Department is a starting dose and meant to be titrated up once you follow up with a clinic. Please do not feel discouraged, it is a process. The nurse has reviewed with you where to follow up and what information to bring with you, to continue treatment. You also may have been given naloxone (narcan) to take home with you. This medication is used to potentially treat opiate overdose. If you decide you want to stop or cut down on how much you?re using, you can call or walk into our outpatient Addiction Treatment office: [facility] (M-F 9am-5p) [address] [place] [address], [address] [phone] You may have been provided with safer injection?items, please take time to take care of YOU and your health. Use new supplies whenever possible to lessen the chances of infections and other illnesses.? ?If you need more supplies, please go [facility],? [address] [place] [address] OR you can call or text to coordinate delivery of safer supplies. You were also provided a list of several treatment providers in the area.? If you experience any worsening symptoms you cannot control please return to the ED or call 911. Please follow up at your next appointment. Things to look out for are fevers, chest pain, shortness of breath, severe pain, dizziness, fainting or any other concerns. Prescriptions: New buprenorphine-naloxone [Suboxone] 4-1 mg film 1 film buccal Q24H Qty: 7 0RF Rx Instructions: place 1 strip/tab under (each) side of tongue hydroxyzine HCl 25 mg tablet 25 mg PO TID PRN (Reason: anxiety) Qty: 20 0RF No Action nicotine 21 mg/24 hr Patch 24 Hour 21 mg transdermal DAILY PRN (Reason: nicotine cravings) 28 Days Qty: 28 1RF nicotine (polacrilex) 4 mg Lozenge 4 mg buccal Q2H PRN (Reason: Nicotine Cravings) 30 Days Qty: 108 1RF clonidine HCl 0.1 mg Tablet 0.1 mg PO Q4H PRN (Reason: anxiety/opiate w/drawal) 30 Days Qty: 60 1RF Protocol: Hold for SBP< HOLD for SBP < : 90 hydroxyzine HCl 25 mg Tablet 25 mg PO Q6H PRN (Reason: Anxiety) 30 Days Qty: 60 1RF olanzapine 15 mg tablet 15 mg PO BEDTIME 30 Days Qty: 30 1RF trazodone 50 mg Tablet 50 mg PO BEDTIME PRN (Reason: Insomnia) 30 Days Qty: 30 1RF buprenorphine-naloxone [Suboxone] 4-1 mg film 1 film buccal TID Qty: 42 1RF Print Language: Japanese
[2024-08-30 09:17] LABS: MANUAL DIFF FLAG NO
[2024-08-30 09:21] LABS: Basophils Absolute Auto 0.1 X10*3/uL (0.0-0.2); Basophils Percent Auto 0.4 % (0-2); Eosinophils Absolute Auto 0.8 X10*3/uL (0.0-0.4); Eosinophils Percent Auto 6.3 % (0-4); Hematocrit 42.5 % (42.0-52.0); Hemoglobin 14.6 g/dl (14.0-18.0); Imm Gran Abs Auto 0.03 X10*3/uL (0.00-0.03); Imm Gran Pct Auto 0.3 % (0.0-0.4); Lymphocytes Absolute Auto 2.6 X10*3/uL (1.2-4.9); Lymphocytes Percent Auto 21.7 % (20-40); Mean Corpuscular HGB Conc 34.4 g/dl (31.0-36.0); Mean Corpuscular Hemoglobin 29.7 pg (27.0-33.0); Mean Corpuscular Volume 86.6 fL (80.0-98.0); Mean Platelet Volume 8.2 fL (9.4-12.4); Monocytes Absolute Auto 0.5 X10*3/uL (0.1-1.2); Monocytes Percent Auto 4.1 % (2-11); Neutrophils Percent Auto 67.2 % (45-73); Platelet Count 378 X10*3/uL (160-400); Red Blood Count 4.91 X10*6/uL (4.60-5.80); Red Cell Distribution Width 12.6 % (11.0-16.0)
[2024-08-30 09:30] LABS: Amphetamine Screen Urine Not Detected (Not Detect); Barbiturates, Urine Not Detected (Not Detect); Benzodiazepines Screen Urine Not Detected (Not Detect); Buprenorphine Scr Not Detected (Not Detect); Cannabinoid Screen Urine POSITIVE (Not Detect); Cocaine Screen Urine POSITIVE (Not Detect); Fentanyl, urine POSITIVE (Not Detect); Methadone Screen, Urine Not Detected (Not Detect); Opiate Screen Urine Not Detected (Not Detect); Oxycodone Screen Urine Not Detected (Not Detect); Phencyclidine Screen Urine Not Detected (Not Detect)
[2024-08-30 09:36] LABS: Alanine Aminotransferase < 6 U/L (0-40); Albumin Level 4.1 g/dL (3.5-5.0); Alkaline Phosphatase 81 U/L (39-117); Anion Gap 13 (12-20); Aspartate Amino Transferase 13 U/L (5-37); Bilirubin Direct 0.1 mg/dL (0.0-0.5); Bilirubin Total 0.4 mg/dL (0.0-1.0); Blood Urea Nitrogen 13 mg/dL (9-16); Calcium 9.1 mg/dL (8.4-10.2); Carbon Dioxide 22 mmol/L (22-29); Chloride 111 mmol/L (96-108); Creatinine Clr Calc Pharmacy 122.3; Estimated Glomerular Filt Rate > 60; Ethanol < 10 mg/dL; Glucose Random 116 mg/dL (60-115); Magnesium 2.1 mg/dL (1.6-2.6); Potassium 3.6 mmol/L (3.3-5.1); Sodium 142 mmol/L (135-145); Total Protein 7.7 g/dL (6.5-8.0)
[2024-08-30 09:46] LABS: Troponin-I High Sensitivity < 2.7 ng/L (<3.5-35.0)
[2024-08-30 10:01] LABS: Influenza A PCR NEGATIVE (Negative); Influenza B PCR NEGATIVE (Negative); Resp Syncy Virus RNA Qual PCR NEGATIVE (Negative); SARS COV2 PCR INHOUSE NEGATIVE (Negative)
[2024-08-30] MEDS: Naloxone HCl Nasal TAKE HOME 4 MG SPRAY 8 MG NOSTRILALT (12:06)
[2024-08-30 12:08] VITALS: BP 141/79; PULSE 83; RESP 18; TEMP 36.6; O2SAT 98
== END 2024-08-30 12:13 | disposition home or self-care (01) ==
PROVIDERS: Emergency Provider Emergency Medicine
DX: F33.1 Major depressive disorder, recurrent, moderate (principal); R45.851 Suicidal ideations; F14.10 Cocaine abuse, uncomplicated; F11.10 Opioid abuse, uncomplicated; G47.00 Insomnia, unspecified; R07.89 Other chest pain; Z03.818 Encounter for observation for suspected exposure to other biological agents ruled out; Z51.81 Encounter for therapeutic drug level monitoring; Z79.899 Other long term (current) drug therapy
CPT/HCPCS: 0241U; 36415; 71046; 80048; 80076; 80307; 83735; 84484; 85025; 93005; 99284; S9485

== ENCOUNTER → 2024-08-30 08:59 | Outpatient (BNV) | payer MEDICAID, SELFPAY | PROVIDERS: Emergency Provider Emergency Medicine; Visit Provider Internal Medicine Cardiovascular Disease | DX: R94.31 Abnormal electrocardiogram [ECG] [EKG] (principal); R07.9 Chest pain, unspecified | CPT/HCPCS: 93010 ==

== ENCOUNTER → 2024-08-30 08:59 | Outpatient (BNV) | payer MEDICAID, SELFPAY | PROVIDERS: Emergency Provider Emergency Medicine; Visit Provider Radiology Diagnostic Radiology | DX: R07.9 Chest pain, unspecified (principal) | CPT/HCPCS: 71046 ==